=== PATIENT | male | born 1970 | race Caucasian/White ===

== ENCOUNTER 2017-05-10 09:30 | Emergency (ER) | payer OTHER ==
[2017-05-10] MEDS: ACETAMINOPHEN 325 MG TAB PO (10:59)
[2017-05-10] MEDS: IBUPROFEN 600 MG TAB PO (10:59)
== END 2017-05-10 11:44 | disposition home or self-care (01) ==
LOC: FTE 09:30
DX: L03.012 Cellulitis of left finger (principal); E11.9 Type 2 diabetes mellitus without complications
CPT/HCPCS: 10060; 73140; 99283-25